=== PATIENT | female | born 1985 | race Caucasian/White ===

== ENCOUNTER → 2016-09-10 | Outpatient (CLI) | payer BC ==
[~2016-09-10] MED LIST: ERGO1CAP35 PO; ERGO500037 PO; FMR25 PO; OXYC-57 PO
[2016-09-10 13:46] LABS: BASO % 0.5 %; BASO ABS # 0.04 K/uL (0-0.2); COMPLETE YES; EOS % 0.9 %; HEMATOCRIT 40.1 % (37-47); IG% 0.1 %; LYMPH % 27.5 %; MEAN CELL VOLUME 85.1 fL (80-100); MEAN CORPUSCULAR HEMOGLOBIN 30.1 pg (25-34); MEAN CORPUSCULAR HGB CONC 35.4 g/dl (32-36); MEAN PLATELET VOLUME 12.8 fL (7.4-10.4); MONO % 8.9 %; NEUT % 62.1 %; PLATELET COUNT 272 K/uL (130-400); RED BLOOD COUNT 4.71 M/uL (4.2-5.4)
[2016-09-10 14:45] LABS: ALT/SGPT 23 U/L (12-78); AMYLASE 60 U/L (25-115); BLOOD UREA NITROGEN 14 mg/dl (7-18); BUN/CREATININE RATIO 18.1 (10-20); CARBON DIOXIDE 26 mmol/L (21-32); CHLORIDE 106 mmol/L (98-107); CREATININE 0.77 mg/dl (0.60-1.20); GLUCOSE 106 mg/dl (70-99); POTASSIUM 4.1 mmol/L (3.5-5.1); SODIUM 140 mmol/L (136-145)
[2016-09-10 14:48] LABS: ALB/GLOB RATIO 1.3 (0.9-2); ALKALINE PHOSPHATASE 47 U/L (45-117); AST/SGOT 18 U/L (15-37)
[2016-09-10 15:09] LABS: CALCIUM 9.5 mg/dl (8.5-10.1)
== END | disposition home or self-care (01) ==
LOC: C.LAB 12:54
PROVIDERS: ATTEND Family Medicine
DX: R10.11 Right upper quadrant pain (principal)

== ENCOUNTER → 2016-09-14 | Outpatient (CLI) | payer BC ==
--- NOTE | 2016-09-14 08:34 | DIAGNOSTIC IMAGING REPORT ---
ABDOMINAL ULTRASOUND COMPLETE HISTORY: Right upper quadrant abdominal pain.. COMPARISON: Abdominal ultrasound 06/14/2014. FINDINGS: Pancreas: The pancreas demonstrates a normal echotexture. Liver: Unremarkable. Gallbladder: No gallbladder wall thickening. No gallstones. CBD: 2 mm. Kidneys: No hydronephrosis. Spleen: Normal in size. Aorta: Normal in caliber. IVC: Patent. IMPRESSION: No significant abnormality identified within the within the abdomen. Electronically signed by: Ravi Shelton M.D. 09/14/2016 8:32 AM Dictated Date/Time: 09/14/2016 8:31 AM
== END | disposition home or self-care (01) ==
LOC: C.ULTRBC 07:48
PROVIDERS: ATTEND Family Medicine
DX: R10.11 Right upper quadrant pain (principal)

== ENCOUNTER 2016-12-09 11:50 | Emergency (ER) | payer BC ==
[~2016-12-09] VITALS: Ht 170.2 cm; Wt 60.0 kg
[~2016-12-09 11:50] MED LIST changes: -ERGO500037 PO; -FMR25 PO
[2016-12-09 11:53] VITALS: TEMP 36.9; Ht 170.2 cm; Wt 60.0 kg
[2016-12-09] MEDS ORDERED: ACETAMINOPHEN 500 MG TAB PO STA (12:07)
[2016-12-09] MEDS ORDERED: ERGO500037 PO (12:19)
[2016-12-09] MEDS ORDERED: FMR25 PO (12:20)
--- NOTE | 2016-12-09 12:30 | EMERGENCY ROOM VISIT NOTE ---
ED Visit Note First contact with patient: 11:59 CHIEF COMPLAINT: Ankle pain HISTORY OF PRESENT ILLNESS: This 31-year-old female patient presents to the emergency department after sustaining an injury to the left ankle and foot with a twisting, inversion motion from stepping in a hole in the ground. The patient complains of pain along the outside of the ankle. The patient has dorsal pain of the foot. The patient rates the pain as throbbing and 8/10. The patient is not able to bear weight on the foot. Constant pain, worse with movement, weight bearing, and the dependent position. No knee pain, the patient is able to move their toes. No numbness or weakness of the foot, no laceration. The patient has not had a previous fracture to this ankle. The patient has taken ibuprofen for the pain. The patient denies any other injury. REVIEW OF SYSTEMS: A 6 system review of systems was completed with positives and pertinent negatives listed in the HPI. ALLERGIES: See chart MEDICATIONS: See chart PMH: See chart SOCIAL HISTORY: See chart PHYSICAL EXAM: Vital Signs: Reviewed Nurse's notes, vital signs stable. GENERAL : Pleasant and cooperative, no acute distress, but appears in pain, well- developed, well-nourished. MENTAL STATUS: Alert, oriented to person place and time, and cooperative. MUSCULOSKELETAL: The left ankle is swollen and tender over the lateral malleolus, but the skin is intact and there is no ligamentous instability. There is no fifth metatarsal tenderness. There is no tenderness over the rest of the foot. There is no calf or tibia/fibular tenderness. There is no visual deformity. The foot and toes are warm and well-perfused. Dorsalis pedis pulse 2+. Sensation to pain and light touch is intact. Capillary refill less than 2 seconds. EMERGENCY DEPARTMENT COURSE: I examined the patient. Different diagnosis includes ankle sprain, strain, fracture, dislocation, contusion. X-rays of the left foot and ankle were reviewed by myself and read by radiology and reveal no acute fracture or other bony abnormality. Gel splint was applied to the ankle under my direction and the position was satisfactory. Neurovascular status was rechecked and intact. The patient was instructed on the use of crutches. The patient was discharged home in good condition. Current/Historical Medications Scheduled Ergocalciferol (Vitamin D 01068 Unit), 50,000 UNIT PO WK Letrozole (Femara), 5 MG PO QAM Allergies Coded Allergies: No Known Allergies (Unverified , 12/09/16) Vital Signs Date Time Temp Pulse Resp B/P (MAP) Pulse Ox O2 Delivery O2 Flow Rate FiO2 12/09/16 14:31 79 16 113/69 98 12/09/16 11:53 36.9 88 16 131/83 97 Room Air Medications Administered Medications (Trade) Dose Ordered Sig/Yahaira Route Start Time Stop Time Status Last Admin Dose Admin Acetaminophen (Tylenol Tab) 1,000 mg NOW STAT PO 12/09/16 12:07 12/09/16 12:09 DC 12/09/16 12:17 1,000 MG Departure Information Impression Primary Impression: Left ankle sprain Dispostion Home / Self-Care Condition GOOD Referrals Caden Thornton DO (PCP) Isaias Anand DO Patient Instructions ED Sprain Ankle, [facility] Additional Instructions Ice and elevation for the next 2 days, use crutches to avoid weight bearing on the left foot/ankle, wear the splint on the left ankle. Ibuprofen 600 mg and Tylenol 1000 mg every 6-8 hours if needed for pain. See your doctor or an orthopedic surgeon if there is no improvement in 4 - 5 days. Problem Qualifiers Primary Impression: Left ankle sprain Encounter type: initial encounter Involved ligament of ankle: unspecified ligament Qualified Codes: S93.402A - Sprain of unspecified ligament of left ankle, initial encounter
--- NOTE | 2016-12-09 12:35 | DIAGNOSTIC IMAGING REPORT ---
LEFT ANKLE 3 VIEWS CLINICAL HISTORY: Twisting injury. FINDINGS: 3 views of the left ankle are obtained. No prior studies are available for comparison at the time of dictation. The skeletal structures are well mineralized. No fracture is seen. The ankle mortise is intact. There is no joint effusion. Mild soft tissue swelling is observed. IMPRESSION: Mild soft tissue swelling with no radiographic evidence of fracture. Electronically signed by: Gonzales Wick M.D. 12/09/2016 12:34 PM Dictated Date/Time: 12/09/2016 12:33 PM
--- NOTE | 2016-12-09 12:35 | DIAGNOSTIC IMAGING REPORT ---
LEFT FOOT MIN 3 VIEWS ROUTINE CLINICAL HISTORY: twisting injury, lateral ankle and foot pain/swelling, eval fx trauma COMPARISON: None. DISCUSSION: The bones and joint spaces appear intact. There is no evidence of fracture, dislocation or bony disease. There is no evidence for soft tissue swelling. IMPRESSION: Negative study. Electronically signed by: Raymond Vieira M.D. 12/09/2016 12:34 PM Dictated Date/Time: 12/09/2016 12:33 PM
[2016-12-09 14:31] VITALS: BP 113/69; PULSE 79; O2SAT 98
== END 2016-12-09 14:32 | disposition home or self-care (01) ==
LOC: C.EDB 11:50 → C.EDD 14:32
DX: S93.402A Sprain of unspecified ligament of left ankle, initial encounter (principal); W17.2XXA Fall into hole, initial encounter

== ENCOUNTER → 2016-12-15 | Outpatient (CLI) | payer BC ==
[~2016-12-15] MED LIST changes: -ERGO1CAP35 PO; +ERGO500037 PO; +FMR25 PO; -OXYC-57 PO
--- NOTE | 2016-12-15 12:00 | Procedure Note ---
Procedure Note Procedure Date Dec 15, 2016. Procedure Description Procedure Name: Hysterosalpingogram Procedure time out: side/site verified, patient ID confirmed, correct procedure Consent obtained: verbal Performed by: attending Indications: diagnostic Contraindications: none Description: Patient referred for HSG by Dr Andrew as part of infertility workup. FINDINGS: anteverted uterus. Bilateral spill from fallopian tubes seen. Normal cavity contour, no defects or pathology noted on uterus/tubes. The procedure was discussed with patient beforehand and all questions answered. She was placed in the dorsal lithotomy position, speculum was inserted and cervix visualized. The vagina/cervix was cleansed with betadine and the anterior lip of the cervix was grasped with a single-toothed tenaculum. The uterine manipulator acorn was placed in the cervical os and the speculum was removed. Radioopaque dye was injected through the manipulator under fluoroscopic visualization. Findings as above. The manipulator and tenaculum were removed from the vagina, excellent hemostasis. Patient tolerated the procedure well. Complications: none Patient tolerated procedure: well
--- NOTE | 2016-12-15 13:15 | DIAGNOSTIC IMAGING REPORT ---
HYSTEROSALPINGOGRAM CLINICAL HISTORY: 31-year-old female with infertility. 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 Multiple spot images were obtained. COMPARISON: None. FINDINGS: The uterine cavity is normal in size, shape, and position. The fallopian tubes are patent and there is free peritoneal spill bilaterally. FLUOROSCOPY TIME: 0.5 minutes. IMPRESSION: Normal hysterosalpingogram. Electronically signed by: Shashi Guerrero M.D. 12/15/2016 1:14 PM Dictated Date/Time: 12/15/2016 1:13 PM
== END | disposition home or self-care (01) ==
LOC: C.RAD 10:21
PROVIDERS: ATTEND Obstetrics & Gynecology
DX: Z31.41 Encounter for fertility testing (principal)

== ENCOUNTER → 2017-03-04 | Outpatient (CLI) | payer BC | END | disposition home or self-care (01) | LOC: C.LABSPEC 16:00 | PROVIDERS: ATTEND Physician Assistant | DX: L29.2 Pruritus vulvae (principal) ==